=== PATIENT | male | born 1955 | race American Indian/Alaskan Native ===

== ENCOUNTER 2017-07-26 06:15 | Day surgery (SDC) | payer MEDICARE ==
[~2017-07-26 06:15] MED LIST: ANCEF/STERILE WATER 2 GM/20 ML IV NR; FLAGYL IV ONE; NS IV ONE; VIAFLEX EMPTY CONTAINER IV ONE
[2017-07-26] MEDS ORDERED: NACL BACTERIOSTATIC INFILTRATI ONE (06:46)
[2017-07-26] MEDS ORDERED: FLAGYL 500 MG/100 ML 500 MG/100 ML BAG IV SCH (07:00)
[2017-07-26] MEDS ORDERED: ANCEF/STERILE WATER 2 GM/20 ML 2 GM/20 ML SYRINGE IV NR (07:00)
[2017-07-26] MEDS ORDERED: DILAUDID ONE (07:27)
[2017-07-26] MEDS ORDERED: XYLOCAINE MPF 2% ONE (07:27)
[2017-07-26] MEDS ORDERED: DIPRIVAN 10 MG/ML IV ONE (07:28)
[2017-07-26] MEDS ORDERED: MARCAINE 0.25% INFILTRATI ONE ×4 (07:30→08:34)
[2017-07-26] MEDS ORDERED: PERCOCET 5/325 PO PRN (07:30)
[2017-07-26] MEDS ORDERED: MORPHINE IV PRN (07:30)
[2017-07-26] MEDS ORDERED: NACL ONE (07:30)
[2017-07-26] MEDS ORDERED: XYLOCAINE 1% 20 mL ONE ×2 (07:30→07:48)
[2017-07-26] MEDS ORDERED: METHYLENE BLUE ONE (07:31)
[2017-07-26] MEDS ORDERED: ZOFRAN IV NR (08:00)
[2017-07-26] MEDS ORDERED: PEPCID PO NR (08:00)
[2017-07-26] MEDS ORDERED: VERSED IV NR (08:00)
[2017-07-26] MEDS ORDERED: NACL 0.9% 1000 ML 1,000 ML IV SCH (08:00)
--- NOTE | 2017-07-26 08:01 | Anesthesia Consultation ---
Anesthesia Consult and Med Hx Date of service: 07/26/17 - Airway Anesthetic Teeth Evaluation: Dentures ROM Head & Neck: Adequate Mental/Hyoid Distance: Adequate Mallampati Class: Class II Intubation Access Assessment: Probably Good - Pulmonary Exam CTA: Yes - Cardiac Exam Cardiac Exam: RRR - Pre-Operative Health Status ASA Pre-Surgery Classification: ASA2 Proposed Anesthetic Plan: General - Pulmonary Hx Sleep Apnea: Yes - Central Nervous System Hx Psychiatric Problems: Yes
--- NOTE | 2017-07-26 08:02 | Anesthesia Day of Surgery ---
Anesthesia Day of Surgery - Day of Surgery Patient Examined: Yes Patient H&P Reviewed: Yes Patient is NPO: Yes
[2017-07-26] MEDS ORDERED: ZEMURON IV ONE (08:09)
[2017-07-26] MEDS ORDERED: SUBLIMAZE ONE (08:15)
[2017-07-26] MEDS ORDERED: NACL 0.9% IR ONE (08:34)
[2017-07-26] MEDS ORDERED: DECADRON ONE (08:42)
[2017-07-26] MEDS ORDERED: GELFOAM TP ONE ×2 (08:45→08:49)
[2017-07-26] MEDS ORDERED: NUPERCAINAL PR ONE (08:45)
[2017-07-26] MEDS ORDERED: NUPERCAINAL ONE (08:50)
--- NOTE | 2017-07-26 08:56 | Post Operative Note ---
Pre-op diagnosis: Anal fistula Post-op diagnosis: same Findings: Intersphincteric postr anal fistula Procedure: Exam under anesthesia, anal fistulectomy Anesthesia: GETA Surgeon: YUNIOR TONY Estimated blood loss: minimal Pathology: list (anal fistula) Specimen disposition: to lab Condition: stable Disposition: PACU
--- NOTE | 2017-07-26 09:01 | Discharge Summary ---
Short Stay Discharge Plan Weight Bearing Status: Full Weight Bearing Diet: regular Wound: change dressing (tomorrow a.m, start Sitzs baths TID from tomorrow) Follow up with: ERICK RICO MD [Primary Care Provider] - 7 Days Prescriptions: Docusate Sodium [Colace] 100 mg PO BID PRN #30 capsule PRN Reason: Constipation Ketorolac [Toradol] 10 mg PO Q6H PRN #20 tablet PRN Reason: Pain oxyCODONE /ACETAMINOPHEN [Percocet 5/325] 1 tab PO Q6HR PRN #20 tablet PRN Reason: Pain
--- NOTE | 2017-07-26 09:29 | Post Anesthesia Evaluation ---
- Post Anesthesia Evaluation Patient Participated: Yes Airway Patent: Yes Stable Respiratory Function: Yes Nausea/Vomiting: No Temp > 96.8F: Yes Pain Manageable: Yes Adequeate Hydration: Yes Anesthesia Complications: No Block Receding Appropriately: Not Applicable Patient on Ventilator: No
--- NOTE | 2017-07-26 09:52 | Operative Report ---
PREOPERATIVE DIAGNOSIS: Anal fistula. POSTOPERATIVE DIAGNOSIS: Posterior intersphincteric anal fistula. OPERATIVE PROCEDURE: Examination under anesthesia and anal fistulectomy. ANESTHESIA: General endotracheal. SPECIMENS: Anal fistula. BLOOD LOSS: Minimal. IMPLANTS: None. INDICATIONS: A 62-year-old male patient presenting with intermittent purulent discharge from the perianal area for the past year and a half. Clinical examination reveals a postanal fistula. He is brought in for exam under anesthesia. He has psychiatric problems and he has not been and sister is the beer cooler, but he understands the gravity of the procedure and the postop care needed. FINDINGS: Posterior anal fistula on the right side at 7 o'clock. It is intersphincteric. No residual abscess or purulent material noted. Expected amount of scar tissue noted up to the circular fibers of the superficial internal sphincter. Visualization of the anal canal and distal rectal mucosa did not reveal any other abnormality except being far smaller hemorrhoids. DESCRIPTION OF PROCEDURE: After satisfactory induction of general endotracheal anesthesia on the stretcher, the patient was transferred to the operating table and placed in a jackknife position with appropriate protected devices. Both gluteal folds were and taped. Operative area prepped and draped. Coccygeal block with 0.25% Marcaine was given. The anal speculum was lubricated and inserted to visualize the dentate line and a probe was placed in the external opening, which was directed towards the intersphincteric groove. Using this as a guide using sharp and blunt dissection with cautery for hemostasis, the entire scar tissue and the fistula was resected. Wound was irrigated with saline solution and packed with Gelfoam impregnated with Nupercainal general. Dry occlusive dressings were placed. Blood loss was minimal and he tolerated the procedure well. JOB# [id number] MNN/NTS
[2017-07-26 17:48] VITALS: BP 128/78
== END 2017-07-26 11:59 | disposition home or self-care (01) ==
LOC: OR 06:15
PROVIDERS: ATTEND Surgery
DX: K62.89 Other specified diseases of anus and rectum (principal); K64.8 Other hemorrhoids; G47.30 Sleep apnea, unspecified; F32.9 Major depressive disorder, single episode, unspecified; Z80.42 Family history of malignant neoplasm of prostate
CPT/HCPCS: 46275; 88304; A4649; J0690; J1100; J1170; J2250; J2405; J2704; J3010; J7030; Q9968